=== PATIENT | female | born 1975 | race Hispanic/Latino ===

== ENCOUNTER → 2022-04-06 | Outpatient (CLI) | payer SELFPAY | LOC: MAMMO 12:15 | PROVIDERS: ATTEND Registered Nurse General Practice | DX: R92.2 Inconclusive mammogram (principal) | CPT/HCPCS: 77066 ==

== ENCOUNTER → 2022-04-20 | Outpatient (CLI) | payer SELFPAY | LOC: US 10:35 | PROVIDERS: ATTEND Registered Nurse General Practice | DX: N64.4 Mastodynia (principal); N64.52 Nipple discharge ==